=== PATIENT | female | born 1950 | race Caucasian/White ===

== ENCOUNTER → 2017-01-03 | Day surgery (SDC) | payer OTHER ==
[~2017-01-03] MED LIST: ANUSOL-HC SUPP25 MG PR; ASPIRIN81 M1 PO; ASPIRIN81 M2 PO; ATENOLOL PO; ATENOLOL-CHLOR1 EACH PO; AZOR 10-20 MG1 UDTAB PO; BACTRIM DS TABL1 TA1 PO; CIPRO PO; FLAGYL PO; GLUCOPHAGE500 M1 PO; JANUVIA PO; MULTIVITAMIN1 UDCAP PO; NORVASC10 MG PO; NORVASC2.5 MG PO; PERCOCET5/325 PO; RELAFEN500 MG; RELAFEN500 MG PO; STOOL SOFTENER100 M1 PO; VITAMIN B12; [UNRECOGNIZED DRUG - OTHER]
--- NOTE | ~2017-01-03 | EKG ---
PATIENT: CHANDNI PINEDA UNIT #: [id number] Ventricular Rate: 55 BPM Atrial Rate: 55 BPM P-R Interval: 170 ms QRS Duration: 78 ms Q-T Interval: 456 ms QTC Calculation(Bezet): 436 ms P [place]: 43 degrees Calculated R [place]: 29 degrees Calculated T [place]: 41 degrees Diagnosis Line: Sinus bradycardia Diagnosis Line: Otherwise normal ECG Diagnosis Line: When compared with ECG of 16-JAN-2012 19:33, Diagnosis Line: No significant change was found Diagnosis Line: Confirmed by FAISAL CENTENO MD ([id number]) on 01/05/2017 Diagnosis Line: 7:22:06 AM INTERPRETING MD: TARYN MONTALVO
--- NOTE | ~2017-01-03 | OR ---
Unit #: [id number] #: [id number] Patient: CHANDNI PINEDA [id number] [address] [address] [id number] MR#: [id number] NAME: CHANDNI PINEDA ROOM: Date of Procedure: 01/03/2017 Admission Date: 01/03/2017 Surgeon: Eduardo Nagel M.D. : 1950 Attending Physician: Andrew Lama III, M.D. Primary Care Physician: Tarah Farrell M.D. OPERATIVE REPORT PREOPERATIVE DIAGNOSIS Left thigh abscess. POSTOPERATIVE DIAGNOSIS Left thigh abscess. PROCEDURE PERFORMED Sharp excisional debridement and drainage of left thigh abscess with a knife down to muscle fascia. TRANSLATOR/INTERPRETER None. ANESTHESIA General anesthesia. ESTIMATED BLOOD LOSS Minimal. IV FLUIDS 400 crystalloid. COMPLICATIONS None. INDICATIONS FOR PROCEDURE The patient is a 66-year-old lady who presents with an abscess of unknown etiology in her left thigh. DESCRIPTION OF PROCEDURE The patient was taken to the operating theater and placed in the supine position. General anesthesia was induced. Her left lower extremity was prepped and draped. An elliptical incision was then made inclusive of the lesion measuring 10 x 3 cm. The area was excised. I broke up all loculations down to the muscle fascia. We then irrigated thoroughly with normal saline and then packed with Betadine. The patient tolerated the procedure well and sent to the recovery room in good condition. Dictated by... Eduardo Nagel M.D. Unit #: [id number] #: [id number] Patient: CHANDNI PINEDA JNO/modl TD: 01/04/2017 08:03 JOB #: [id number] OPERATIVE REPORT Page 1 of 1 X Eduardo Nagel MD PROCEDURE OPERATIVE NOTE
[2017-01-03 11:46] LABS: HEMATOCRIT 39.3 % (35.0-45.0); HEMOGLOBIN 12.7 gm/dL (12.0-16.0); MEAN CELL VOLUME 82.3 FL (83-96); MEAN CORPUSCULAR HEMOGLOBIN 26.6 PG (28-34); MEAN CORPUSCULAR HGB CONC 32.3 g/dL (30-36); MEAN PLATELET VOLUME 7.2 FL (6.5-11.5); RED BLOOD COUNT 4.77 X10e (3.90-5.30); WHITE BLOOD COUNT 12.9 X10e3 (4.0-10.5)
[2017-01-03 12:06] LABS: GLOM FILT RATE Estimated 59.1 mL/min (>60); POTASSIUM 4.5 mmol/L (3.5-5.1)
== END | disposition home or self-care (01) ==
LOC: CSUR 10:40
PROVIDERS: Surgery
DX: L02.416 Cutaneous abscess of left lower limb (principal); E11.9 Type 2 diabetes mellitus without complications; E78.2 Mixed hyperlipidemia; M10.9 Gout, unspecified; E66.9 Obesity, unspecified; I10 Essential (primary) hypertension; Z91.040 Latex allergy status; Z96.653 Presence of artificial knee joint, bilateral; Z90.710 Acquired absence of both cervix and uterus
CPT/HCPCS: 80048; 82947; 85027; 87070; 87075; 87205; 93005; J1100; J1170; J2405; J2543; J3010